=== PATIENT | male | born 1935 | race Caucasian/White ===

== ENCOUNTER 2017-05-05 13:17 | Inpatient (IN) ==
[2017-05-05] MEDS ORDERED: ALBUTEROL/IPRATROPIUM 3 ML NEB RESP TX STA (13:47)
[2017-05-05] MEDS ORDERED: cefTRIAXone 1,000 MG in SODIUM CHLORIDE 0.9% 100 ML IV STA (13:47)
[2017-05-05] MEDS ORDERED: SODIUM CHLORIDE 0.9% 500 ML IV STA ×2 (13:47→15:42)
[2017-05-05] MEDS ORDERED: ACETAMINOPHEN 650 MG SUPP RECTAL ONE (13:48)
[2017-05-05] MEDS ORDERED: methylPREDNISolone SOD SUC 125 MG/2 ML VIAL IV STA (13:50)
[2017-05-05] MEDS ORDERED: DIPH/TET/ACEL PERT BOOSTER VACCINE 0.5 ML VIAL IM ONE ×2 (13:51→14:08)
[2017-05-05 14:06] LABS: Basophils # 0.1 10*3/uL (0.0-0.2); Basophils % 0.5 % (0.0-0.8); Eosinophils % 0.1 % (0.00-10.9); Hematocrit 34.4 VOL% (42.0-52.0); Hemoglobin 11.8 GM/DL (14.0-18.0); Immature Granulocytes % 2.9 %; Lymphocytes % 5.7 % (21.2-54.2); Mean Corpuscular HGB Conc 34.3 GM/DL (32-36); Mean Corpuscular Hemoglobin 29 PG (27-34); Mean Corpuscular Volume 85.1 FL (87-102); Mean Platelet Volume 11.4 FL (9.6-12.0); Monocytes # 1.2 10*3/uL (0.11-0.8); Monocytes % 6.9 % (1.7-12.7); Neutrophils # 14.6 10*3/uL (1.4-7.4); Neutrophils % 83.9 % (38.7-73.9); Platelet Count 301 T/CUMM (130-400); Red Blood Count 4.04 MC/CUMM (3.8-5.5); Red Cell Distribution Width 16.4 % (9.3-17.3); White Blood Count 17.4 T/CUMM (4-12)
[2017-05-05] MEDS ORDERED: cefTRIAXone 1,000 MG VIAL ONE (14:07)
[2017-05-05] MEDS ORDERED: methylPREDNISolone SOD SUC 125 MG/2 ML VIAL ONE (14:08)
[2017-05-05] MEDS ORDERED: LORazepam 2 MG/1 ML VIAL ONE (14:08)
[2017-05-05 14:17] LABS: Apearance,Urine CLEAR (Clear); Bilirubin,Urine Negative (Negative); Blood, Urine Moderate mg/dL (Negative); Glucose,Urine (UA) Negative (Negative); Hyaline Casts,Urine 1 /LPF (0-3); Ketones,Urine Negative (Negative); Mucus,Urine Occasional /LPF (Occasional); Nitrite,Urine Negative (Negative); Protein,Urine Negative; RBC,Urine 2 /HPF (0-4); Urine Color Yellow (Yellow); Urine Specific Gravity 1.019 (1.001-1.035); Urine Urobilinogen < 2.0 EU/DL (0.2-1.0); WBC,Urine 8 /HPF (0-6)
[2017-05-05] MEDS ORDERED: LORazepam 2 MG/1 ML VIAL IV STA ×2 (14:23→15:42)
[2017-05-05 14:33] LABS: Albumin 3.9 G/DL (3.4-5.0); Bilirubin,Total 1.4 MG/DL (0.2-1.0); Calcium 9.1 MG/DL (8.5-10.1); Osmolality,Calculated 297.8 MOS/KG (273-304); Potassium 5.1 MMOL/L (3.5-5.1); Total Protein 6.6 G/DL (6.4-8.3)
[2017-05-05 14:34] LABS: Lactic Acid 6.1 MMOL/L (0.4-2.0)
[2017-05-05] MEDS ORDERED: DEXTROSE 50% 25 GM/50 ML VIAL IV STA (14:57)
[2017-05-05] MEDS ORDERED: SODIUM CHLORIDE 0.9% 1,950 ML IV ONE ×2 (14:58→15:08)
[2017-05-05] MEDS ORDERED: DEXTROSE 50% 25 GM/50 ML SYRINGE IV ONE (14:59)
[2017-05-05] MEDS ORDERED: SODIUM CHLORIDE 0.9% 1,000 ML IV SCH (15:00)
[2017-05-05 15:13] LABS: Sedimentation Rate-Westergren 46 MM/HR (0-20)
[2017-05-05 15:23] LABS: ABG Base Excess -6.9 MMOL/L (-2.5-2.5); ABG HCO3 18.7 MMOL/L (20-26); ABG Oxygen Saturation 93.9 % (95-100); ABG PCO2 29.8 MM HG (35-48); ABG PH 7.372 (7.35-7.45); ABG PO2 71.1 MM HG (80-95); ABG TCO2 15.7 MMOL/L (23-27)
[2017-05-05] MEDS ORDERED: DEXTROSE 50% 25 GM/50 ML VIAL IV PRN (15:58)
[2017-05-05] MEDS ORDERED: GLUCAGON 1 MG VIAL IM PRN (15:58)
[2017-05-05] MEDS ORDERED: ONDANSETRON 4 MG/2 ML VIAL IV PRN (15:58)
[2017-05-05] MEDS ORDERED: traMADol 50 MG TABLET PO PRN (16:26)
[2017-05-05 16:41] LABS: Partial Thromboplastin Time 26.8 SECS (0-40)
[2017-05-05] MEDS: PANTOPRAZOLE 40 MG VIAL IV SCH (16:49)
[2017-05-05] MEDS: ENOXAPARIN 30 MG/0.3 ML SYRINGE SUBCUT SCH (16:53)
[2017-05-05] MEDS: THEOPHYLLINE ER 300 MG TABLET PO SCH (16:54)
[2017-05-05] MEDS: methylPREDNISolone SOD SUC 40 MG/1 ML VIAL IV SCH ×2 (16:54→20:21)
[2017-05-05 17:10] LABS: Apearance,Urine Slightly Hazy (Clear); Bacteria,Urine Occasional /HPF (Few); Bilirubin,Urine Negative (Negative); Blood, Urine Large mg/dL (Negative); Glucose,Urine (UA) Negative (Negative); Ketones,Urine 5 mg/dL (Negative); Mucus,Urine Occasional /LPF (Occasional); Nitrite,Urine Negative (Negative); Protein,Urine 30 MG/DL; RBC,Urine 2 /HPF (0-4); Squamous Epithelial Cell,Urine Occasional /HPF (0-10); Urine Color Yellow (Yellow); Urine Specific Gravity 1.019 (1.001-1.035); Urine Urobilinogen < 2.0 EU/DL (0.2-1.0); WBC,Urine 5 /HPF (0-6)
[2017-05-05] MEDS: PIPERACILLIN/TAZOBACTAM 3,375 MG in SODIUM CHLORIDE 0.9% 100 ML IV SCH (17:31)
[2017-05-05] MEDS: ALBUTEROL/IPRATROPIUM 3 ML NEB RESP TX SCH (19:32)
[2017-05-05] MEDS: SODIUM BICARB INJ 50 MEQ in DEXTROSE 5% NACL 0.45% 1,000 ML IV SCH (19:45)
[2017-05-05] MEDS: GABAPENTIN 100 MG CAPSULE PO SCH (20:51)
[2017-05-05] MEDS ORDERED: PIPERACILLIN/TAZOBACTAM 3,375 MG in SODIUM CHLORIDE 0.9% 100 ML IV SCH (23:00)
[2017-05-06] MEDS: ALBUTEROL/IPRATROPIUM 3 ML NEB RESP TX SCH ×4 (00:29→20:21)
[2017-05-06] MEDS: PIPERACILLIN/TAZOBACTAM 3,375 MG in SODIUM CHLORIDE 0.9% 100 ML IV SCH ×3 (01:53→17:21)
[2017-05-06] MEDS: ALBUTEROL 2.5 MG/3 ML NEB RESP TX PRN (02:15)
[2017-05-06 04:40] LABS: Basophils # 0.1 10*3/uL (0.0-0.2); Basophils % 0.4 % (0.0-0.8); Hematocrit 31.2 VOL% (42.0-52.0); Hemoglobin 10.4 GM/DL (14.0-18.0); Immature Granulocytes % 2.1 %; Immature Granulocytes Absolute 0.39 #; Lymphocytes # 0.9 10*3/uL (1.4-4.0); Lymphocytes % 4.6 % (21.2-54.2); Mean Corpuscular HGB Conc 33.3 GM/DL (32-36); Mean Corpuscular Hemoglobin 28 PG (27-34); Mean Corpuscular Volume 85.2 FL (87-102); Mean Platelet Volume 11.5 FL (9.6-12.0); Monocytes # 0.5 10*3/uL (0.11-0.8); Monocytes % 2.6 % (1.7-12.7); Neutrophils # 16.6 10*3/uL (1.4-7.4); Neutrophils % 90.3 % (38.7-73.9); Platelet Count 230 T/CUMM (130-400); Red Blood Count 3.66 MC/CUMM (3.8-5.5); Red Cell Distribution Width 16.6 % (9.3-17.3); White Blood Count 18.3 T/CUMM (4-12)
[2017-05-06 05:08] LABS: Albumin 3.3 G/DL (3.4-5.0); Bilirubin,Total 1.3 MG/DL (0.2-1.0); Calcium 7.9 MG/DL (8.5-10.1); Osmolality,Calculated 310.3 MOS/KG (273-304); Total Protein 5.8 G/DL (6.4-8.3)
[2017-05-06 05:16] LABS: Band Neutrophils 2 % (0-10); Giant Platelets Few; Hypochromasia 1+; Lymphocytes 3 % (20-55); Ovalocytes Slight; Platelet Estimate Adequate; Segmented Neutrophils 94 % (50-85); Total Cells Counted 100
[2017-05-06] MEDS: SODIUM BICARB INJ 50 MEQ in DEXTROSE 5% NACL 0.45% 1,000 ML IV SCH ×3 (06:58→17:31)
[2017-05-06] MEDS: methylPREDNISolone SOD SUC 40 MG/1 ML VIAL IV SCH ×3 (07:05→22:02)
[2017-05-06] MEDS: LEVALBUTEROL 1.25 MG/3 ML NEB RESP TX PRN ×3 (07:40→19:14)
[2017-05-06] MEDS: GABAPENTIN 100 MG CAPSULE PO SCH ×3 (09:14→20:19)
[2017-05-06] MEDS: DULoxetine 30 MG CAPSULE PO SCH (09:14)
[2017-05-06] MEDS: TAMSULOSIN 0.4 MG CAPSULE PO SCH (09:15)
[2017-05-06] MEDS: FOLIC ACID 1 MG TABLET PO SCH (09:15)
[2017-05-06] MEDS: ACETAMINOPHEN 325 MG TABLET PO PRN (12:52)
[2017-05-06] MEDS ORDERED: cefTRIAXone 1,000 MG in SYRINGE 1 EACH IV SCH (13:00)
[2017-05-06] MEDS ORDERED: ADENOSINE 6 MG/2 ML VIAL IV ONE (14:19)
[2017-05-06] MEDS ORDERED: FUROSEMIDE 40 MG/4 ML VIAL IV ONE (16:41)
[2017-05-06] MEDS ORDERED: ACETAMINOPHEN 650 MG SUPP RECTAL PRN (16:52)
[2017-05-06] MEDS: PANTOPRAZOLE 40 MG VIAL IV SCH (17:18)
[2017-05-06] MEDS: ENOXAPARIN 30 MG/0.3 ML SYRINGE SUBCUT SCH (17:21)
[2017-05-06] MEDS: VANCOMYCIN INJ 1,000 MG in SODIUM CHLORIDE 0.9% 250 ML IV SCH (18:40)
[2017-05-07] MEDS: PIPERACILLIN/TAZOBACTAM 3,375 MG in SODIUM CHLORIDE 0.9% 100 ML IV SCH ×3 (00:51→17:30)
[2017-05-07] MEDS: LEVALBUTEROL 1.25 MG/3 ML NEB RESP TX PRN (00:58)
[2017-05-07] MEDS: ALBUTEROL/IPRATROPIUM 3 ML NEB RESP TX SCH ×5 (00:58→23:59)
[2017-05-07] MEDS: SODIUM BICARB INJ 50 MEQ in DEXTROSE 5% NACL 0.45% 1,000 ML IV SCH ×3 (02:34→19:09)
[2017-05-07 04:59] LABS: Basophils % 0.2 % (0.0-0.8); Hemoglobin 9.7 GM/DL (14.0-18.0); Immature Granulocytes % 2.6 %; Immature Granulocytes Absolute 0.43 #; Lymphocytes # 0.6 10*3/uL (1.4-4.0); Lymphocytes % 3.8 % (21.2-54.2); Mean Corpuscular HGB Conc 33.4 GM/DL (32-36); Mean Corpuscular Hemoglobin 28 PG (27-34); Mean Corpuscular Volume 84.5 FL (87-102); Mean Platelet Volume 11.4 FL (9.6-12.0); Monocytes # 0.4 10*3/uL (0.11-0.8); Monocytes % 2.3 % (1.7-12.7); Neutrophils % 91.1 % (38.7-73.9); Platelet Count 223 T/CUMM (130-400); Red Blood Count 3.43 MC/CUMM (3.8-5.5); White Blood Count 16.5 T/CUMM (4-12)
[2017-05-07 05:28] LABS: Free T4 (Free Thyroxine) 1.05 NG/DL (0.76-1.46); Risk Ratio 2.4; VLDL CHOLESTEROL 19.2 MG/DL
[2017-05-07 05:29] LABS: Albumin 2.8 G/DL (3.4-5.0); Bilirubin,Total 1.1 MG/DL (0.2-1.0); Calcium 7.8 MG/DL (8.5-10.1); Osmolality,Calculated 317.9 MOS/KG (273-304); Potassium 3.3 MMOL/L (3.5-5.1); Total Protein 5.3 G/DL (6.4-8.3)
[2017-05-07 05:45] LABS: Lymphocytes 3 % (20-55); Segmented Neutrophils 97 % (50-85); Total Cells Counted 100
[2017-05-07 05:46] LABS: Anisocytosis 1+; Hypochromasia 1+; Ovalocytes Few; Platelet Estimate Normal
[2017-05-07] MEDS: methylPREDNISolone SOD SUC 40 MG/1 ML VIAL IV SCH ×3 (05:56→21:00)
[2017-05-07] MEDS: TAMSULOSIN 0.4 MG CAPSULE PO SCH ×2 (08:33→08:54)
[2017-05-07] MEDS: DULoxetine 30 MG CAPSULE PO SCH ×2 (08:33→08:54)
[2017-05-07] MEDS: FOLIC ACID 1 MG TABLET PO SCH ×2 (08:35→08:54)
[2017-05-07] MEDS: GABAPENTIN 100 MG CAPSULE PO SCH ×4 (08:35→20:46)
[2017-05-07] MEDS ORDERED: INFLUENZA VIRUS VACCINE 0.5 ML SYRINGE IM ONE (09:00)
[2017-05-07] MEDS: POTASSIUM CHLORIDE 20 MEQ TABLET PO SCH ×2 (15:04→17:30)
[2017-05-07] MEDS: PANTOPRAZOLE 40 MG VIAL IV SCH (17:31)
[2017-05-07] MEDS: ENOXAPARIN 30 MG/0.3 ML SYRINGE SUBCUT SCH (17:31)
[2017-05-07] MEDS: ALBUTEROL 2.5 MG/3 ML NEB RESP TX PRN (17:42)
[2017-05-08] MEDS: PIPERACILLIN/TAZOBACTAM 3,375 MG in SODIUM CHLORIDE 0.9% 100 ML IV SCH ×3 (00:58→21:26)
[2017-05-08] MEDS: SODIUM BICARB INJ 50 MEQ in DEXTROSE 5% NACL 0.45% 1,000 ML IV SCH (03:11)
[2017-05-08 03:53] LABS: Basophils % 0.2 % (0.0-0.8); Hematocrit 28.3 VOL% (42.0-52.0); Hemoglobin 9.6 GM/DL (14.0-18.0); Immature Granulocytes % 4.2 %; Immature Granulocytes Absolute 0.56 #; Lymphocytes # 0.5 10*3/uL (1.4-4.0); Lymphocytes % 3.9 % (21.2-54.2); Mean Corpuscular HGB Conc 33.9 GM/DL (32-36); Mean Corpuscular Hemoglobin 29 PG (27-34); Mean Corpuscular Volume 85.2 FL (87-102); Mean Platelet Volume 11.1 FL (9.6-12.0); Monocytes # 0.6 10*3/uL (0.11-0.8); Monocytes % 4.5 % (1.7-12.7); Neutrophils # 11.5 10*3/uL (1.4-7.4); Neutrophils % 87.2 % (38.7-73.9); Platelet Count 211 T/CUMM (130-400); Red Blood Count 3.32 MC/CUMM (3.8-5.5); White Blood Count 13.2 T/CUMM (4-12)
[2017-05-08 04:20] LABS: Calcium 7.8 MG/DL (8.5-10.1); Magnesium 2.1 MG/DL (1.8-2.4); Osmolality,Calculated 327.2 MOS/KG (273-304); Potassium 4.1 MMOL/L (3.5-5.1)
[2017-05-08 04:57] LABS: Band Neutrophils 1 % (0-10); Lymphocytes 4 % (20-55); Platelet Estimate Normal; Segmented Neutrophils 93 % (50-85); Total Cells Counted 100
[2017-05-08] MEDS: methylPREDNISolone SOD SUC 40 MG/1 ML VIAL IV SCH ×3 (05:49→21:30)
[2017-05-08] MEDS: ALBUTEROL/IPRATROPIUM 3 ML NEB RESP TX SCH ×3 (07:23→19:41)
[2017-05-08] MEDS: DEXTROSE 5% 1,000 ML IV SCH ×2 (09:14→19:45)
[2017-05-08] MEDS: DULoxetine 30 MG CAPSULE PO SCH (09:15)
[2017-05-08] MEDS: FOLIC ACID 1 MG TABLET PO SCH (09:15)
[2017-05-08] MEDS: TAMSULOSIN 0.4 MG CAPSULE PO SCH (09:15)
[2017-05-08] MEDS: GABAPENTIN 100 MG CAPSULE PO SCH (09:15)
[2017-05-08] MEDS: INSULIN REGULAR 100 UNIT/ML SUBCUT SCH ×3 (11:35→22:33)
[2017-05-08] MEDS: THEOPHYLLINE ER 300 MG TABLET PO SCH ×2 (12:33→17:22)
[2017-05-08] MEDS ORDERED: ALBUTEROL/IPRATROPIUM 3 ML NEB RESP TX PRN (16:04)
[2017-05-08] MEDS ORDERED: ALBUTEROL 2.5 MG/3 ML NEB RESP TX SCH (16:04)
[2017-05-08] MEDS: PANTOPRAZOLE 40 MG VIAL IV SCH (17:14)
[2017-05-08] MEDS: VANCOMYCIN INJ 1,000 MG in SODIUM CHLORIDE 0.9% 250 ML IV SCH (18:11)
[2017-05-08] MEDS: predniSONE 10 MG TABLET PO SCH (18:16)
[2017-05-08] MEDS: ENOXAPARIN 30 MG/0.3 ML SYRINGE SUBCUT SCH (18:16)
[2017-05-08] MEDS: ACETAMINOPHEN 325 MG TABLET PO PRN (23:54)
[2017-05-09] MEDS: ALBUTEROL/IPRATROPIUM 3 ML NEB RESP TX SCH ×4 (00:17→19:00)
[2017-05-09] MEDS: PIPERACILLIN/TAZOBACTAM 3,375 MG in SODIUM CHLORIDE 0.9% 100 ML IV SCH ×2 (01:42→09:23)
[2017-05-09] MEDS: methylPREDNISolone SOD SUC 40 MG/1 ML VIAL IV SCH ×2 (05:32→17:24)
[2017-05-09] MEDS: INSULIN REGULAR 100 UNIT/ML SUBCUT SCH ×3 (08:33→17:20)
[2017-05-09] MEDS: DEXTROSE 5% 1,000 ML IV SCH (09:15)
[2017-05-09] MEDS: THEOPHYLLINE ER 300 MG TABLET PO SCH ×2 (09:16→17:47)
[2017-05-09] MEDS: DULoxetine 30 MG CAPSULE PO SCH (09:18)
[2017-05-09] MEDS: TAMSULOSIN 0.4 MG CAPSULE PO SCH (09:19)
[2017-05-09] MEDS: predniSONE 10 MG TABLET PO SCH (09:20)
[2017-05-09] MEDS: FOLIC ACID 1 MG TABLET PO SCH (09:20)
[2017-05-09] MEDS: PANTOPRAZOLE 40 MG VIAL IV SCH (09:29)
[2017-05-10] MEDS: ALBUTEROL/IPRATROPIUM 3 ML NEB RESP TX SCH ×3 (00:07→13:32)
[2017-05-10] MEDS: DEXTROSE 5% 1,000 ML IV SCH ×2 (00:52→10:04)
[2017-05-10] MEDS: AMOXICILLIN/CLAV 875 MG TABLET PO SCH ×2 (00:54→10:07)
[2017-05-10] MEDS: methylPREDNISolone SOD SUC 40 MG/1 ML VIAL IV SCH ×3 (00:55→14:38)
[2017-05-10] MEDS: ENOXAPARIN 30 MG/0.3 ML SYRINGE SUBCUT SCH (00:56)
[2017-05-10] MEDS: INSULIN REGULAR 100 UNIT/ML SUBCUT SCH ×3 (02:29→12:09)
[2017-05-10 05:42] LABS: Basophils # 0.1 10*3/uL (0.0-0.2); Basophils % 0.6 % (0.0-0.8); Hematocrit 30.7 VOL% (42.0-52.0); Hemoglobin 10.4 GM/DL (14.0-18.0); Immature Granulocytes % 6.4 %; Immature Granulocytes Absolute 0.77 #; Lymphocytes # 1.3 10*3/uL (1.4-4.0); Lymphocytes % 10.5 % (21.2-54.2); Mean Corpuscular HGB Conc 33.9 GM/DL (32-36); Mean Corpuscular Hemoglobin 29 PG (27-34); Mean Corpuscular Volume 84.8 FL (87-102); Monocytes # 0.9 10*3/uL (0.11-0.8); Monocytes % 7.1 % (1.7-12.7); NRBC # 0.02 10*3/uL; Neutrophils # 9.1 10*3/uL (1.4-7.4); Neutrophils % 75.4 % (38.7-73.9); Platelet Count 208 T/CUMM (130-400); Red Blood Count 3.62 MC/CUMM (3.8-5.5); Red Cell Distribution Width 15.9 % (9.3-17.3)
[2017-05-10 06:23] LABS: Calcium 7.9 MG/DL (8.5-10.1); Osmolality,Calculated 291.1 MOS/KG (273-304); Potassium 3.8 MMOL/L (3.5-5.1)
[2017-05-10 06:43] LABS: Band Neutrophils 3 % (0-10); Lymphocytes 14 % (20-55); Nucleated Red Blood Cells 15 (0-5); Segmented Neutrophils 75 % (50-85); Total Cells Counted 100
[2017-05-10 06:44] LABS: Burr Cells Slight; Platelet Estimate Adequate
[2017-05-10] MEDS: PANTOPRAZOLE 40 MG VIAL IV SCH (10:06)
[2017-05-10] MEDS: THEOPHYLLINE ER 300 MG TABLET PO SCH (10:06)
[2017-05-10] MEDS: FOLIC ACID 1 MG TABLET PO SCH (10:07)
[2017-05-10] MEDS: TAMSULOSIN 0.4 MG CAPSULE PO SCH (10:07)
[2017-05-10] MEDS: DULoxetine 30 MG CAPSULE PO SCH (10:07)
[2017-05-10 12:31] VITALS: BP 140/77
[2017-05-10] MEDS ORDERED: ENOXAPARIN 40 MG/0.4 ML SYRINGE SUBCUT SCH (21:00)
== END 2017-05-10 14:00 | disposition swing bed (61) | DRG 871 ==
LOC: N.ED 13:17 → SUATTDRO 15:27 → N.EDINP 15:27 → N.CC 16:15 → N.2E 05-08 16:07
PROVIDERS: ADMIT Internal Medicine; ATTEND Hospitalist

== ENCOUNTER 2017-08-22 09:40 | Inpatient (IN) ==
[2017-08-22] MEDS ORDERED: methylPREDNISolone SOD SUC 125 MG/2 ML VIAL IV STA (10:05)
[2017-08-22] MEDS ORDERED: cefTRIAXone 1,000 MG in SODIUM CHLORIDE 0.9% 100 ML IV STA (10:07)
[2017-08-22] MEDS ORDERED: ALBUTEROL 2.5 MG/3 ML NEB RESP TX STA (10:14)
[2017-08-22] MEDS ORDERED: cefTRIAXone 1,000 MG VIAL ONE (10:20)
[2017-08-22] MEDS ORDERED: methylPREDNISolone SOD SUC 125 MG/2 ML VIAL ONE (10:21)
[2017-08-22 10:29] LABS: ABG Base Excess -1.7 MMOL/L (-2.5-2.5); ABG HCO3 23.4 MMOL/L (20-26); ABG Oxygen Saturation 95.8 % (95-100); ABG PCO2 40.7 MM HG (35-48); ABG PH 7.377 (7.35-7.45); ABG PO2 84.4 MM HG (80-95); ABG TCO2 24.6 MMOL/L (23-27)
[2017-08-22 10:43] LABS: Basophils # 0.1 10*3/uL (0.0-0.2); Basophils % 0.4 % (0.0-0.8); Hematocrit 29.1 VOL% (42.0-52.0); Hemoglobin 9.5 GM/DL (14.0-18.0); Immature Granulocytes % 0.8 %; Immature Granulocytes Absolute 0.17 #; Lymphocytes # 0.6 10*3/uL (1.4-4.0); Lymphocytes % 2.9 % (21.2-54.2); Mean Corpuscular HGB Conc 32.6 GM/DL (32-36); Mean Corpuscular Hemoglobin 30 PG (27-34); Mean Corpuscular Volume 90.7 FL (87-102); Mean Platelet Volume 10.5 FL (9.6-12.0); Monocytes # 1.1 10*3/uL (0.11-0.8); Monocytes % 5.4 % (1.7-12.7); Neutrophils # 18.4 10*3/uL (1.4-7.4); Neutrophils % 90.5 % (38.7-73.9); Platelet Count 256 T/CUMM (130-400); Red Blood Count 3.21 MC/CUMM (3.8-5.5); Red Cell Distribution Width 17.3 % (9.3-17.3); White Blood Count 20.4 T/CUMM (4-12)
[2017-08-22 10:52] LABS: Lactic Acid 2.2 MMOL/L (0.4-2.0)
[2017-08-22 11:04] LABS: Alanine Aminotransferase 9 U/L (16-61); Albumin 2.9 G/DL (3.4-5.0); Alkaline Phosphatase 67 U/L (45-117); Aspartate Amino Transferase 23 U/L (0-37); Blood Urea Nitrogen 33 MG/DL (7-18); Glucose 121 MG/DL (74-106); Osmolality,Calculated 290.1 MOS/KG (273-304); Potassium 3.7 MMOL/L (3.5-5.1); Sodium 142 MMOL/L (136-145); Total Protein 5.6 G/DL (6.4-8.3); Troponin I Only < 0.015 NG/ML (0.00-0.045)
[2017-08-22 11:22] LABS: Band Neutrophils 6 % (0-10); Giant Platelets Few; Hypochromasia 1+; Lymphocytes 1 % (20-55); Nucleated Red Blood Cells 1 (0-5); Ovalocytes Slight; Platelet Estimate Adequate; Segmented Neutrophils 85 % (50-85); Total Cells Counted 100
[2017-08-22] MEDS ORDERED: ONDANSETRON 4 MG/2 ML VIAL IV PRN (13:48)
[2017-08-22] MEDS ORDERED: ALBUTEROL/IPRATROPIUM 3 ML NEB RESP TX PRN (13:48)
[2017-08-22] MEDS ORDERED: ALBUTEROL/IPRATROPIUM 3 ML NEB RESP TX SCH (13:48)
[2017-08-22] MEDS ORDERED: DILTIAZEM 50 MG/10 ML VIAL IV ONE (14:22)
[2017-08-22] MEDS ORDERED: methylPREDNISolone SOD SUC 40 MG/1 ML VIAL IV SCH (14:30)
[2017-08-22] MEDS: cefTRIAXone 1,000 MG in SYRINGE 1 EACH IV SCH (14:50)
[2017-08-22] MEDS: DILTIAZEM INJ 100 MG in SODIUM CHLORIDE 0.9% 100 ML IV SCH ×2 (15:13→23:26)
[2017-08-22] MEDS: SODIUM CHLORIDE 0.9% 1,000 ML IV SCH (15:14)
[2017-08-22] MEDS: ENOXAPARIN 40 MG/0.4 ML SYRINGE SUBCUT SCH (15:14)
[2017-08-22] MEDS: GABAPENTIN 100 MG CAPSULE PO SCH ×3 (15:16→21:27)
[2017-08-22 15:25] LABS: Calcium 8.6 MG/DL (8.5-10.1); Potassium 3.4 MMOL/L (3.5-5.1)
[2017-08-22] MEDS ORDERED: LEVALBUTEROL 1.25 MG/3 ML NEB RESP TX PRN (15:56)
[2017-08-22] MEDS: THEOPHYLLINE ER 300 MG TABLET PO SCH (17:38)
[2017-08-22] MEDS: AZITHROMYCIN INJ 500 MG in SODIUM CHLORIDE 0.9% 250 ML IV SCH (17:38)
[2017-08-22 18:10] LABS: Apearance,Urine CLEAR (Clear); Bilirubin,Urine Negative (Negative); Blood, Urine Small mg/dL (Negative); Glucose,Urine (UA) Negative (Negative); Ketones,Urine Negative (Negative); Mucus,Urine Occasional /LPF (Occasional); Nitrite,Urine Negative (Negative); Protein,Urine Negative; RBC,Urine <1 /HPF (0-4); Urine Color Yellow (Yellow); Urine Specific Gravity 1.009 (1.001-1.035); Urine Urobilinogen < 2.0 EU/DL (0.2-1.0)
[2017-08-22] MEDS: LEVALBUTEROL 1.25 MG/3 ML NEB RESP TX SCH (19:46)
[2017-08-22] MEDS: DOCUSATE SODIUM 100 MG CAPSULE PO SCH (21:26)
[2017-08-22] MEDS: METOPROLOL TARTRATE 25 MG TABLET PO SCH (21:26)
[2017-08-22] MEDS: DILTIAZEM 60 MG TABLET PO SCH (21:26)
[2017-08-22] MEDS: rOPINIRole 0.25 MG TABLET PO SCH (21:26)
[2017-08-22] MEDS: RIVASTIGMINE 1.5 MG CAPSULE PO SCH (21:27)
[2017-08-22] MEDS ORDERED: cefTRIAXone 1,000 MG in SYRINGE 1 EACH IV SCH (22:00)
[2017-08-22] MEDS: methylPREDNISolone SOD SUC 40 MG/1 ML VIAL IV SCH (23:24)
[2017-08-23] MEDS: LEVALBUTEROL 1.25 MG/3 ML NEB RESP TX SCH ×4 (01:22→18:55)
[2017-08-23 02:12] LABS: Basophils # 0.1 10*3/uL (0.0-0.2); Basophils % 0.3 % (0.0-0.8); Hematocrit 28.8 VOL% (42.0-52.0); Hemoglobin 9.5 GM/DL (14.0-18.0); Immature Granulocytes % 1.6 %; Immature Granulocytes Absolute 0.33 #; Lymphocytes # 0.8 10*3/uL (1.4-4.0); Mean Corpuscular Hemoglobin 30 PG (27-34); Mean Corpuscular Volume 90.6 FL (87-102); Mean Platelet Volume 10.5 FL (9.6-12.0); Monocytes # 0.5 10*3/uL (0.11-0.8); Monocytes % 2.4 % (1.7-12.7); Neutrophils # 18.6 10*3/uL (1.4-7.4); Neutrophils % 91.7 % (38.7-73.9); Platelet Count 271 T/CUMM (130-400); Red Blood Count 3.18 MC/CUMM (3.8-5.5); Red Cell Distribution Width 17.5 % (9.3-17.3); White Blood Count 20.2 T/CUMM (4-12)
[2017-08-23 02:43] LABS: Calcium 8.3 MG/DL (8.5-10.1); Potassium 3.7 MMOL/L (3.5-5.1)
[2017-08-23 02:56] LABS: Band Neutrophils 30 % (0-10); Lymphocytes 6 % (20-55); Segmented Neutrophils 63 % (50-85); Total Cells Counted 100
[2017-08-23] MEDS: SODIUM CHLORIDE 0.9% 1,000 ML IV SCH ×3 (04:00→21:32)
[2017-08-23 04:39] LABS: Allen Test Positive
[2017-08-23 04:40] LABS: ABG Base Excess -1.4 MMOL/L (-2.5-2.5); ABG HCO3 23.3 MMOL/L (20-26); ABG Oxygen Saturation 95.5 % (95-100); ABG PCO2 38.9 MM HG (35-48); ABG PH 7.395 (7.35-7.45); ABG PO2 79.3 MM HG (80-95); ABG TCO2 24.5 MMOL/L (23-27)
[2017-08-23] MEDS: methylPREDNISolone SOD SUC 40 MG/1 ML VIAL IV SCH ×2 (06:07→14:30)
[2017-08-23] MEDS: DULoxetine 30 MG CAPSULE PO SCH (08:53)
[2017-08-23] MEDS: DOCUSATE SODIUM 100 MG CAPSULE PO SCH ×2 (08:53→21:25)
[2017-08-23] MEDS: PANTOPRAZOLE 40 MG TABLET PO SCH (08:53)
[2017-08-23] MEDS: TAMSULOSIN 0.4 MG CAPSULE PO SCH (08:53)
[2017-08-23] MEDS: THEOPHYLLINE ER 300 MG TABLET PO SCH ×2 (08:53→17:10)
[2017-08-23] MEDS: METOPROLOL TARTRATE 25 MG TABLET PO SCH ×2 (08:53→21:25)
[2017-08-23] MEDS: DILTIAZEM 60 MG TABLET PO SCH ×4 (08:53→21:25)
[2017-08-23] MEDS: FOLIC ACID 1 MG TABLET PO SCH (08:53)
[2017-08-23] MEDS: RIVASTIGMINE 1.5 MG CAPSULE PO SCH ×2 (08:53→21:25)
[2017-08-23] MEDS: GABAPENTIN 100 MG CAPSULE PO SCH ×3 (08:53→21:25)
[2017-08-23 11:53] LABS: Lactic Acid 2.3 MMOL/L (0.4-2.0)
[2017-08-23] MEDS: ENOXAPARIN 40 MG/0.4 ML SYRINGE SUBCUT SCH (14:30)
[2017-08-23] MEDS: cefTRIAXone 1,000 MG in SYRINGE 1 EACH IV SCH (14:32)
[2017-08-23] MEDS: AZITHROMYCIN INJ 500 MG in SODIUM CHLORIDE 0.9% 250 ML IV SCH (14:47)
[2017-08-23] MEDS: rOPINIRole 0.25 MG TABLET PO SCH (21:25)
[2017-08-24] MEDS: methylPREDNISolone SOD SUC 40 MG/1 ML VIAL IV SCH ×3 (00:38→14:37)
[2017-08-24] MEDS: LEVALBUTEROL 1.25 MG/3 ML NEB RESP TX SCH ×2 (01:35→06:50)
[2017-08-24 06:02] LABS: Basophils # 0.1 10*3/uL (0.0-0.2); Basophils % 0.5 % (0.0-0.8); Hemoglobin 8.9 GM/DL (14.0-18.0); Immature Granulocytes % 3.7 %; Immature Granulocytes Absolute 0.65 #; Lymphocytes # 0.6 10*3/uL (1.4-4.0); Lymphocytes % 3.5 % (21.2-54.2); Mean Corpuscular HGB Conc 34.2 GM/DL (32-36); Mean Corpuscular Hemoglobin 30 PG (27-34); Mean Corpuscular Volume 88.4 FL (87-102); Mean Platelet Volume 11.3 FL (9.6-12.0); Monocytes # 0.3 10*3/uL (0.11-0.8); Monocytes % 1.9 % (1.7-12.7); NRBC # 0.03 10*3/uL; Neutrophils % 90.4 % (38.7-73.9); Platelet Count 241 T/CUMM (130-400); Red Blood Count 2.94 MC/CUMM (3.8-5.5); Red Cell Distribution Width 17.4 % (9.3-17.3); White Blood Count 17.7 T/CUMM (4-12)
[2017-08-24 06:22] LABS: Lymphocytes 4 % (20-55); Segmented Neutrophils 94 % (50-85); Total Cells Counted 100
[2017-08-24] MEDS: SODIUM CHLORIDE 0.9% 1,000 ML IV SCH ×2 (06:26→22:18)
[2017-08-24 06:35] LABS: Albumin 2.8 G/DL (3.4-5.0); Bilirubin,Total 0.6 MG/DL (0.2-1.0); Calcium 8.1 MG/DL (8.5-10.1); Osmolality,Calculated 304.1 MOS/KG (273-304); Potassium 3.2 MMOL/L (3.5-5.1); Total Protein 5.1 G/DL (6.4-8.3)
[2017-08-24] MEDS: THEOPHYLLINE ER 300 MG TABLET PO SCH ×2 (08:36→17:16)
[2017-08-24] MEDS: RIVASTIGMINE 1.5 MG CAPSULE PO SCH ×2 (08:36→22:18)
[2017-08-24] MEDS: DOCUSATE SODIUM 100 MG CAPSULE PO SCH ×2 (08:37→22:17)
[2017-08-24] MEDS: PANTOPRAZOLE 40 MG TABLET PO SCH (08:37)
[2017-08-24] MEDS: DILTIAZEM 60 MG TABLET PO SCH ×4 (08:37→22:17)
[2017-08-24] MEDS: TAMSULOSIN 0.4 MG CAPSULE PO SCH (08:37)
[2017-08-24] MEDS: GABAPENTIN 100 MG CAPSULE PO SCH ×3 (08:37→22:17)
[2017-08-24] MEDS: DULoxetine 30 MG CAPSULE PO SCH (08:37)
[2017-08-24] MEDS: METOPROLOL TARTRATE 25 MG TABLET PO SCH ×2 (08:37→22:18)
[2017-08-24] MEDS: FOLIC ACID 1 MG TABLET PO SCH (08:37)
[2017-08-24] MEDS: POTASSIUM CHLORIDE RIDER 10 MEQ in PREMIX 1 EACH IV PRN ×4 (08:40→12:55)
[2017-08-24] MEDS: ALBUTEROL/IPRATROPIUM 3 ML NEB RESP TX SCH ×2 (12:47→19:14)
[2017-08-24] MEDS: CARBIDOPA/LEVODOPA 25-100 MG TABLET PO SCH ×2 (14:37→22:18)
[2017-08-24] MEDS: ENOXAPARIN 40 MG/0.4 ML SYRINGE SUBCUT SCH (14:37)
[2017-08-24] MEDS: cefTRIAXone 1,000 MG in SYRINGE 1 EACH IV SCH (14:38)
[2017-08-24] MEDS: AZITHROMYCIN INJ 500 MG in SODIUM CHLORIDE 0.9% 250 ML IV SCH (14:46)
[2017-08-24] MEDS: rOPINIRole 0.25 MG TABLET PO SCH (22:18)
[2017-08-25] MEDS: ALBUTEROL/IPRATROPIUM 3 ML NEB RESP TX SCH ×4 (00:30→18:56)
[2017-08-25] MEDS: methylPREDNISolone SOD SUC 40 MG/1 ML VIAL IV SCH (01:21)
[2017-08-25] MEDS ORDERED: ZIPRASIDONE 20 MG/1 ML VIAL IM ONE (01:30)
[2017-08-25] MEDS: FOLIC ACID 1 MG TABLET PO SCH (08:54)
[2017-08-25] MEDS: RIVASTIGMINE 1.5 MG CAPSULE PO SCH ×2 (08:54→21:14)
[2017-08-25] MEDS: DILTIAZEM 60 MG TABLET PO SCH ×4 (08:54→21:14)
[2017-08-25] MEDS: DOCUSATE SODIUM 100 MG CAPSULE PO SCH ×2 (08:55→21:14)
[2017-08-25] MEDS: METOPROLOL TARTRATE 25 MG TABLET PO SCH ×2 (08:55→21:14)
[2017-08-25] MEDS: SODIUM CHLORIDE 0.9% 1,000 ML IV SCH (08:55)
[2017-08-25] MEDS: CARBIDOPA/LEVODOPA 25-100 MG TABLET PO SCH ×3 (08:55→21:14)
[2017-08-25] MEDS: PANTOPRAZOLE 40 MG TABLET PO SCH (08:55)
[2017-08-25] MEDS: THEOPHYLLINE ER 300 MG TABLET PO SCH ×2 (08:55→17:08)
[2017-08-25] MEDS: GABAPENTIN 100 MG CAPSULE PO SCH ×3 (08:55→21:14)
[2017-08-25] MEDS: TAMSULOSIN 0.4 MG CAPSULE PO SCH (08:55)
[2017-08-25] MEDS: DULoxetine 30 MG CAPSULE PO SCH (08:56)
[2017-08-25] MEDS: predniSONE 20 MG TABLET PO SCH (10:16)
[2017-08-25] MEDS ORDERED: ZIPRASIDONE 20 MG CAPSULE PO PRN ×2 (11:41→11:43)
[2017-08-25] MEDS: cefTRIAXone 1,000 MG in SYRINGE 1 EACH IV SCH (14:28)
[2017-08-25] MEDS: ENOXAPARIN 40 MG/0.4 ML SYRINGE SUBCUT SCH (14:29)
[2017-08-25] MEDS: ZIPRASIDONE 20 MG CAPSULE PO PRN (17:08)
[2017-08-25] MEDS: rOPINIRole 0.25 MG TABLET PO SCH (21:14)
[2017-08-26] MEDS: ALBUTEROL/IPRATROPIUM 3 ML NEB RESP TX SCH ×4 (00:30→20:54)
[2017-08-26] MEDS: predniSONE 20 MG TABLET PO SCH (09:04)
[2017-08-26] MEDS: GABAPENTIN 100 MG CAPSULE PO SCH ×3 (09:06→21:22)
[2017-08-26] MEDS: TAMSULOSIN 0.4 MG CAPSULE PO SCH (09:06)
[2017-08-26] MEDS: THEOPHYLLINE ER 300 MG TABLET PO SCH ×2 (09:06→16:14)
[2017-08-26] MEDS: METOPROLOL TARTRATE 25 MG TABLET PO SCH ×2 (09:06→21:23)
[2017-08-26] MEDS: FOLIC ACID 1 MG TABLET PO SCH (09:06)
[2017-08-26] MEDS: DOCUSATE SODIUM 100 MG CAPSULE PO SCH ×2 (09:06→21:22)
[2017-08-26] MEDS: PANTOPRAZOLE 40 MG TABLET PO SCH (09:06)
[2017-08-26] MEDS: DULoxetine 30 MG CAPSULE PO SCH (09:06)
[2017-08-26] MEDS: DILTIAZEM 60 MG TABLET PO SCH ×4 (09:06→21:22)
[2017-08-26] MEDS: RIVASTIGMINE 1.5 MG CAPSULE PO SCH ×2 (09:06→21:22)
[2017-08-26] MEDS: CARBIDOPA/LEVODOPA 25-100 MG TABLET PO SCH ×3 (09:07→21:22)
[2017-08-26] MEDS: ENOXAPARIN 40 MG/0.4 ML SYRINGE SUBCUT SCH (13:30)
[2017-08-26] MEDS: cefTRIAXone 1,000 MG in SYRINGE 1 EACH IV SCH (16:14)
[2017-08-26] MEDS: rOPINIRole 0.25 MG TABLET PO SCH (21:23)
[2017-08-26] MEDS: CEFUROXIME 250 MG TABLET PO SCH (21:23)
[2017-08-26] MEDS: ZIPRASIDONE 20 MG CAPSULE PO PRN (22:01)
[2017-08-27] MEDS: ALBUTEROL/IPRATROPIUM 3 ML NEB RESP TX SCH ×4 (00:37→21:03)
[2017-08-27 03:44] LABS: Basophils # 0.1 10*3/uL (0.0-0.2); Basophils % 0.9 % (0.0-0.8); Eosinophils % 0.3 % (0.00-10.9); Hematocrit 27.7 VOL% (42.0-52.0); Hemoglobin 9.4 GM/DL (14.0-18.0); Immature Granulocytes % 10.7 %; Immature Granulocytes Absolute 1.09 #; Lymphocytes # 1.3 10*3/uL (1.4-4.0); Lymphocytes % 12.6 % (21.2-54.2); Mean Corpuscular HGB Conc 33.9 GM/DL (32-36); Mean Corpuscular Hemoglobin 30 PG (27-34); Mean Corpuscular Volume 88.2 FL (87-102); Mean Platelet Volume 10.8 FL (9.6-12.0); Monocytes % 9.9 % (1.7-12.7); NRBC # 0.19 10*3/uL; Neutrophils # 6.7 10*3/uL (1.4-7.4); Neutrophils % 65.6 % (38.7-73.9); Platelet Count 293 T/CUMM (130-400); Red Blood Count 3.14 MC/CUMM (3.8-5.5); White Blood Count 10.2 T/CUMM (4-12)
[2017-08-27 04:24] LABS: Calcium 8.3 MG/DL (8.5-10.1); Osmolality,Calculated 301.8 MOS/KG (273-304)
[2017-08-27 05:48] LABS: Band Neutrophils 2 % (0-10); Hypersegmented Neutrophil Few; Lymphocytes 19 % (20-55); Myelocytes 3 %; Segmented Neutrophils 75 % (50-85); Total Cells Counted 100
[2017-08-27 05:50] LABS: Anisocytosis 1+; Atypical Lymphocytes Moderate
[2017-08-27 05:51] LABS: Acanthocytes Few; Platelet Estimate Normal
[2017-08-27] MEDS: RIVASTIGMINE 1.5 MG CAPSULE PO SCH ×2 (10:04→20:19)
[2017-08-27] MEDS: GABAPENTIN 100 MG CAPSULE PO SCH ×3 (10:04→20:19)
[2017-08-27] MEDS: CEFUROXIME 250 MG TABLET PO SCH ×2 (10:04→20:19)
[2017-08-27] MEDS: DULoxetine 30 MG CAPSULE PO SCH (10:05)
[2017-08-27] MEDS: TAMSULOSIN 0.4 MG CAPSULE PO SCH (10:05)
[2017-08-27] MEDS: THEOPHYLLINE ER 300 MG TABLET PO SCH ×2 (10:05→16:56)
[2017-08-27] MEDS: predniSONE 20 MG TABLET PO SCH (10:05)
[2017-08-27] MEDS: FOLIC ACID 1 MG TABLET PO SCH (10:05)
[2017-08-27] MEDS: METOPROLOL TARTRATE 25 MG TABLET PO SCH ×2 (10:06→20:19)
[2017-08-27] MEDS: DILTIAZEM 60 MG TABLET PO SCH ×4 (10:06→20:18)
[2017-08-27] MEDS: PANTOPRAZOLE 40 MG TABLET PO SCH (10:06)
[2017-08-27] MEDS: CARBIDOPA/LEVODOPA 25-100 MG TABLET PO SCH ×3 (10:06→20:19)
[2017-08-27] MEDS: DOCUSATE SODIUM 100 MG CAPSULE PO SCH ×2 (10:09→20:18)
[2017-08-27] MEDS: ENOXAPARIN 40 MG/0.4 ML SYRINGE SUBCUT SCH (14:30)
[2017-08-27] MEDS: rOPINIRole 0.25 MG TABLET PO SCH (20:19)
[2017-08-27] MEDS: ZIPRASIDONE 20 MG CAPSULE PO PRN (21:09)
[2017-08-28] MEDS: ALBUTEROL/IPRATROPIUM 3 ML NEB RESP TX SCH ×4 (00:26→19:31)
[2017-08-28 05:51] LABS: Calcium 7.8 MG/DL (8.5-10.1); Osmolality,Calculated 294.8 MOS/KG (273-304); Potassium 3.8 MMOL/L (3.5-5.1)
[2017-08-28] MEDS: THEOPHYLLINE ER 300 MG TABLET PO SCH ×2 (09:58→16:57)
[2017-08-28] MEDS: CEFUROXIME 250 MG TABLET PO SCH ×2 (09:58→21:45)
[2017-08-28] MEDS: CARBIDOPA/LEVODOPA 25-100 MG TABLET PO SCH ×3 (09:58→21:45)
[2017-08-28] MEDS: DULoxetine 30 MG CAPSULE PO SCH (09:58)
[2017-08-28] MEDS: METOPROLOL TARTRATE 25 MG TABLET PO SCH ×2 (09:59→21:45)
[2017-08-28] MEDS: DOCUSATE SODIUM 100 MG CAPSULE PO SCH ×2 (09:59→21:45)
[2017-08-28] MEDS: FOLIC ACID 1 MG TABLET PO SCH (09:59)
[2017-08-28] MEDS: PANTOPRAZOLE 40 MG TABLET PO SCH (09:59)
[2017-08-28] MEDS: predniSONE 20 MG TABLET PO SCH (09:59)
[2017-08-28] MEDS: GABAPENTIN 100 MG CAPSULE PO SCH ×3 (09:59→21:45)
[2017-08-28] MEDS: DILTIAZEM 60 MG TABLET PO SCH ×4 (09:59→21:45)
[2017-08-28] MEDS: RIVASTIGMINE 1.5 MG CAPSULE PO SCH ×2 (09:59→21:45)
[2017-08-28] MEDS: TAMSULOSIN 0.4 MG CAPSULE PO SCH (09:59)
[2017-08-28] MEDS: ENOXAPARIN 40 MG/0.4 ML SYRINGE SUBCUT SCH (14:48)
[2017-08-28] MEDS: ZIPRASIDONE 20 MG CAPSULE PO PRN (21:45)
[2017-08-28] MEDS: rOPINIRole 0.25 MG TABLET PO SCH (21:45)
[2017-08-29] MEDS: ALBUTEROL/IPRATROPIUM 3 ML NEB RESP TX SCH ×3 (02:47→13:50)
[2017-08-29] MEDS ORDERED: METHOTREXATE 2.5 MG TABLET PO SCH (09:00)
[2017-08-29] MEDS: FOLIC ACID 1 MG TABLET PO SCH (09:38)
[2017-08-29] MEDS: THEOPHYLLINE ER 300 MG TABLET PO SCH (09:38)
[2017-08-29] MEDS: CARBIDOPA/LEVODOPA 25-100 MG TABLET PO SCH ×2 (09:38→15:29)
[2017-08-29] MEDS: DOCUSATE SODIUM 100 MG CAPSULE PO SCH (09:38)
[2017-08-29] MEDS: TAMSULOSIN 0.4 MG CAPSULE PO SCH (09:38)
[2017-08-29] MEDS: DILTIAZEM 60 MG TABLET PO SCH ×2 (09:38→13:33)
[2017-08-29] MEDS: CEFUROXIME 250 MG TABLET PO SCH (09:38)
[2017-08-29] MEDS: PANTOPRAZOLE 40 MG TABLET PO SCH (09:38)
[2017-08-29] MEDS: predniSONE 20 MG TABLET PO SCH (09:38)
[2017-08-29] MEDS: METOPROLOL TARTRATE 25 MG TABLET PO SCH (09:39)
[2017-08-29] MEDS: GABAPENTIN 100 MG CAPSULE PO SCH ×2 (09:39→15:29)
[2017-08-29] MEDS: RIVASTIGMINE 1.5 MG CAPSULE PO SCH (09:39)
[2017-08-29] MEDS: DULoxetine 30 MG CAPSULE PO SCH (09:39)
[2017-08-29 11:26] VITALS: BP 119/79
[2017-08-29] MEDS: ENOXAPARIN 40 MG/0.4 ML SYRINGE SUBCUT SCH (13:33)
== END 2017-08-29 16:05 | DRG 291 ==
LOC: EDUNIT# → EDBD → N.ED 09:40 → SUATTDRO 11:35 → N.EDINP 11:35 → N.TELES 13:31 → N.5E 13:46 → N.TELES 14:23 → N.3E 08-26 16:38
PROVIDERS: ADMIT Internal Medicine; ATTEND Internal Medicine

== ENCOUNTER 2017-09-10 21:15 | Inpatient (IN) ==
[2017-09-10] MEDS ORDERED: ALBUTEROL/IPRATROPIUM 3 ML NEB RESP TX STA (22:02)
[2017-09-10] MEDS ORDERED: cefTRIAXone 1,000 MG in SODIUM CHLORIDE 0.9% 100 ML IV STA (22:05)
[2017-09-10] MEDS ORDERED: methylPREDNISolone SOD SUC 125 MG/2 ML VIAL IV STA (22:05)
[2017-09-10 22:13] LABS: Basophils # 0.1 10*3/uL (0.0-0.2); Basophils % 0.7 % (0.0-0.8); Eosinophils # 0.1 10*3/uL (0.0-0.87); Eosinophils % 0.9 % (0.00-10.9); Hematocrit 30.1 VOL% (42.0-52.0); Hemoglobin 9.6 GM/DL (14.0-18.0); Immature Granulocytes % 0.7 %; Immature Granulocytes Absolute 0.05 #; Lymphocytes # 2.3 10*3/uL (1.4-4.0); Lymphocytes % 29.8 % (21.2-54.2); Mean Corpuscular HGB Conc 31.9 GM/DL (32-36); Mean Corpuscular Hemoglobin 29 PG (27-34); Mean Corpuscular Volume 91.8 FL (87-102); Mean Platelet Volume 10.9 FL (9.6-12.0); Monocytes # 0.7 10*3/uL (0.11-0.8); Monocytes % 8.9 % (1.7-12.7); Neutrophils # 4.5 10*3/uL (1.4-7.4); Platelet Count 354 T/CUMM (130-400); Red Blood Count 3.28 MC/CUMM (3.8-5.5); Red Cell Distribution Width 18.5 % (9.3-17.3); White Blood Count 7.6 T/CUMM (4-12)
[2017-09-10] MEDS ORDERED: cefTRIAXone 1,000 MG VIAL ONE (22:15)
[2017-09-10] MEDS ORDERED: methylPREDNISolone SOD SUC 125 MG/2 ML VIAL ONE (22:15)
[2017-09-10 22:21] LABS: PT Patient Result 10.1 SECS; Partial Thromboplastin Time 27.8 SECS (0-40)
[2017-09-10 22:43] LABS: Alanine Aminotransferase 10 U/L (16-61); Albumin 3.2 G/DL (3.4-5.0); Alkaline Phosphatase 75 U/L (45-117); Aspartate Amino Transferase 19 U/L (0-37); Blood Urea Nitrogen 28 MG/DL (7-18); Calcium 8.2 MG/DL (8.5-10.1); Glucose 128 MG/DL (74-106); Osmolality,Calculated 286.4 MOS/KG (273-304); Potassium 4.3 MMOL/L (3.5-5.1); Sodium 140 MMOL/L (136-145); Total Protein 5.9 G/DL (6.4-8.3); Troponin I Only < 0.015 NG/ML (0.00-0.045)
[2017-09-11] MEDS ORDERED: ALBUTEROL 2.5 MG/3 ML NEB RESP TX PRN (02:28)
[2017-09-11] MEDS ORDERED: ACETAMINOPHEN 325 MG TABLET PO PRN (02:33)
[2017-09-11] MEDS ORDERED: ONDANSETRON 4 MG/2 ML VIAL IV PRN (02:33)
[2017-09-11] MEDS: PIPERACILLIN/TAZOBACTAM 3,375 MG in SODIUM CHLORIDE 0.9% 100 ML IV SCH ×3 (03:44→21:00)
[2017-09-11 04:55] LABS: Basophils % 0.3 % (0.0-0.8); Hematocrit 30.7 VOL% (42.0-52.0); Hemoglobin 9.9 GM/DL (14.0-18.0); Immature Granulocytes % 1.3 %; Immature Granulocytes Absolute 0.08 #; Lymphocytes # 0.3 10*3/uL (1.4-4.0); Lymphocytes % 4.9 % (21.2-54.2); Mean Corpuscular HGB Conc 32.2 GM/DL (32-36); Mean Corpuscular Hemoglobin 30 PG (27-34); Mean Corpuscular Volume 91.4 FL (87-102); Mean Platelet Volume 10.9 FL (9.6-12.0); Monocytes % 0.3 % (1.7-12.7); Neutrophils # 5.7 10*3/uL (1.4-7.4); Neutrophils % 93.2 % (38.7-73.9); Platelet Count 338 T/CUMM (130-400); Red Blood Count 3.36 MC/CUMM (3.8-5.5); Red Cell Distribution Width 18.5 % (9.3-17.3); White Blood Count 6.1 T/CUMM (4-12)
[2017-09-11 05:09] LABS: Calcium 8.5 MG/DL (8.5-10.1); Potassium 4.5 MMOL/L (3.5-5.1)
[2017-09-11 05:39] LABS: Band Neutrophils 2 % (0-10); Lymphocytes 5 % (20-55); Segmented Neutrophils 93 % (50-85); Total Cells Counted 100
[2017-09-11 05:40] LABS: Burr Cells Slight; Platelet Estimate Normal; Poikilocytosis Slight
[2017-09-11] MEDS: methylPREDNISolone SOD SUC 40 MG/1 ML VIAL IV SCH ×3 (06:18→22:52)
[2017-09-11] MEDS: ALBUTEROL/IPRATROPIUM 3 ML NEB RESP TX SCH ×3 (07:18→19:23)
[2017-09-11] MEDS: ENOXAPARIN 40 MG/0.4 ML SYRINGE SUBCUT SCH (08:58)
[2017-09-11] MEDS: PANTOPRAZOLE 40 MG TABLET PO SCH (08:58)
[2017-09-11] MEDS: RIVASTIGMINE 1.5 MG CAPSULE PO SCH (17:28)
[2017-09-11] MEDS: THEOPHYLLINE ER 300 MG TABLET PO SCH (17:28)
[2017-09-11] MEDS: DILTIAZEM 60 MG TABLET PO SCH ×2 (17:28→20:58)
[2017-09-11] MEDS: METOPROLOL TARTRATE 25 MG TABLET PO SCH (20:58)
[2017-09-11] MEDS: CARBIDOPA/LEVODOPA 25-100 MG TABLET PO SCH (20:58)
[2017-09-11] MEDS: GABAPENTIN 100 MG CAPSULE PO SCH (20:58)
[2017-09-11] MEDS: rOPINIRole 0.25 MG TABLET PO SCH (20:59)
[2017-09-11] MEDS: BUDESONIDE/FORMOTEROL 160-4.5 INHALER 6 GM INH SCH (20:59)
[2017-09-12] MEDS: ALBUTEROL/IPRATROPIUM 3 ML NEB RESP TX SCH ×5 (00:10→19:15)
[2017-09-12 04:48] LABS: Basophils % 0.2 % (0.0-0.8); Hematocrit 27.9 VOL% (42.0-52.0); Hemoglobin 9.4 GM/DL (14.0-18.0); Immature Granulocytes % 2.2 %; Immature Granulocytes Absolute 0.38 #; Lymphocytes # 0.6 10*3/uL (1.4-4.0); Lymphocytes % 3.5 % (21.2-54.2); Mean Corpuscular HGB Conc 33.7 GM/DL (32-36); Mean Corpuscular Hemoglobin 30 PG (27-34); Mean Corpuscular Volume 88.6 FL (87-102); Mean Platelet Volume 10.7 FL (9.6-12.0); Monocytes # 0.2 10*3/uL (0.11-0.8); Monocytes % 1.3 % (1.7-12.7); Neutrophils % 92.8 % (38.7-73.9); Platelet Count 318 T/CUMM (130-400); Red Blood Count 3.15 MC/CUMM (3.8-5.5); Red Cell Distribution Width 18.6 % (9.3-17.3); White Blood Count 17.3 T/CUMM (4-12)
[2017-09-12 05:11] LABS: Calcium 8.5 MG/DL (8.5-10.1); Osmolality,Calculated 288.4 MOS/KG (273-304); Potassium 4.5 MMOL/L (3.5-5.1)
[2017-09-12 05:15] LABS: Lymphocytes 4 % (20-55); Microcytosis 1+; Segmented Neutrophils 94 % (50-85); Total Cells Counted 100
[2017-09-12 05:16] LABS: Ovalocytes Slight
[2017-09-12] MEDS: methylPREDNISolone SOD SUC 40 MG/1 ML VIAL IV SCH ×2 (05:42→20:48)
[2017-09-12] MEDS: PIPERACILLIN/TAZOBACTAM 3,375 MG in SODIUM CHLORIDE 0.9% 100 ML IV SCH ×3 (05:45→20:48)
[2017-09-12] MEDS: DILTIAZEM 60 MG TABLET PO SCH ×4 (08:27→20:49)
[2017-09-12] MEDS: THEOPHYLLINE ER 300 MG TABLET PO SCH ×2 (08:27→18:12)
[2017-09-12] MEDS: ENOXAPARIN 40 MG/0.4 ML SYRINGE SUBCUT SCH (08:27)
[2017-09-12] MEDS: PANTOPRAZOLE 40 MG TABLET PO SCH (08:27)
[2017-09-12] MEDS: METOPROLOL TARTRATE 25 MG TABLET PO SCH ×2 (08:27→20:49)
[2017-09-12] MEDS: FOLIC ACID 1 MG TABLET PO SCH (08:28)
[2017-09-12] MEDS: CARBIDOPA/LEVODOPA 25-100 MG TABLET PO SCH ×3 (08:28→20:49)
[2017-09-12] MEDS: GABAPENTIN 100 MG CAPSULE PO SCH ×3 (08:29→20:49)
[2017-09-12] MEDS: RIVASTIGMINE 1.5 MG CAPSULE PO SCH ×2 (08:29→18:12)
[2017-09-12] MEDS: DULoxetine 30 MG CAPSULE PO SCH (08:29)
[2017-09-12] MEDS: TAMSULOSIN 0.4 MG CAPSULE PO SCH (08:29)
[2017-09-12] MEDS: BUDESONIDE/FORMOTEROL 160-4.5 INHALER 6 GM INH SCH ×2 (08:32→20:48)
[2017-09-12] MEDS: rOPINIRole 0.25 MG TABLET PO SCH (20:49)
[2017-09-13] MEDS: ALBUTEROL/IPRATROPIUM 3 ML NEB RESP TX SCH ×4 (00:40→18:15)
[2017-09-13] MEDS: PIPERACILLIN/TAZOBACTAM 3,375 MG in SODIUM CHLORIDE 0.9% 100 ML IV SCH ×3 (05:16→21:06)
[2017-09-13 05:29] LABS: Basophils % 0.1 % (0.0-0.8); Hematocrit 30.5 VOL% (42.0-52.0); Hemoglobin 9.9 GM/DL (14.0-18.0); Immature Granulocytes % 2.8 %; Immature Granulocytes Absolute 0.51 #; Lymphocytes # 0.5 10*3/uL (1.4-4.0); Lymphocytes % 2.7 % (21.2-54.2); Mean Corpuscular HGB Conc 32.5 GM/DL (32-36); Mean Corpuscular Hemoglobin 29 PG (27-34); Mean Corpuscular Volume 90.5 FL (87-102); Mean Platelet Volume 10.8 FL (9.6-12.0); Monocytes # 0.2 10*3/uL (0.11-0.8); Neutrophils # 17.1 10*3/uL (1.4-7.4); Neutrophils % 93.4 % (38.7-73.9); Platelet Count 359 T/CUMM (130-400); Red Blood Count 3.37 MC/CUMM (3.8-5.5); Red Cell Distribution Width 18.8 % (9.3-17.3); White Blood Count 18.3 T/CUMM (4-12)
[2017-09-13 05:48] LABS: Lymphocytes 2 % (20-55); Segmented Neutrophils 96 % (50-85); Total Cells Counted 100
[2017-09-13 05:49] LABS: Giant Platelets Few; Hypochromasia 1+; Microcytosis Slight; Platelet Estimate Adequate
[2017-09-13 06:16] LABS: Calcium 8.8 MG/DL (8.5-10.1); Osmolality,Calculated 293.4 MOS/KG (273-304); Potassium 4.6 MMOL/L (3.5-5.1)
[2017-09-13] MEDS: ENOXAPARIN 40 MG/0.4 ML SYRINGE SUBCUT SCH (09:48)
[2017-09-13] MEDS: methylPREDNISolone SOD SUC 40 MG/1 ML VIAL IV SCH ×2 (09:48→21:06)
[2017-09-13] MEDS: GABAPENTIN 100 MG CAPSULE PO SCH ×3 (09:49→21:07)
[2017-09-13] MEDS: CARBIDOPA/LEVODOPA 25-100 MG TABLET PO SCH ×3 (09:49→21:07)
[2017-09-13] MEDS: RIVASTIGMINE 1.5 MG CAPSULE PO SCH ×2 (09:49→17:15)
[2017-09-13] MEDS: METOPROLOL TARTRATE 25 MG TABLET PO SCH ×2 (09:49→21:07)
[2017-09-13] MEDS: DULoxetine 30 MG CAPSULE PO SCH (09:49)
[2017-09-13] MEDS: DILTIAZEM 60 MG TABLET PO SCH ×4 (09:49→21:07)
[2017-09-13] MEDS: TAMSULOSIN 0.4 MG CAPSULE PO SCH (09:49)
[2017-09-13] MEDS: FOLIC ACID 1 MG TABLET PO SCH (09:49)
[2017-09-13] MEDS: THEOPHYLLINE ER 300 MG TABLET PO SCH ×2 (09:49→17:14)
[2017-09-13] MEDS: BUDESONIDE/FORMOTEROL 160-4.5 INHALER 6 GM INH SCH ×2 (09:58→21:07)
[2017-09-13] MEDS: PANTOPRAZOLE 40 MG TABLET PO SCH (14:07)
[2017-09-13] MEDS: rOPINIRole 0.25 MG TABLET PO SCH (21:07)
[2017-09-14] MEDS: ALBUTEROL/IPRATROPIUM 3 ML NEB RESP TX SCH ×4 (00:33→20:23)
[2017-09-14] MEDS: PIPERACILLIN/TAZOBACTAM 3,375 MG in SODIUM CHLORIDE 0.9% 100 ML IV SCH (04:50)
[2017-09-14] MEDS: TAMSULOSIN 0.4 MG CAPSULE PO SCH (09:03)
[2017-09-14] MEDS: RIVASTIGMINE 1.5 MG CAPSULE PO SCH ×2 (09:03→16:47)
[2017-09-14] MEDS: CARBIDOPA/LEVODOPA 25-100 MG TABLET PO SCH ×3 (09:03→20:35)
[2017-09-14] MEDS: DULoxetine 30 MG CAPSULE PO SCH (09:03)
[2017-09-14] MEDS: PANTOPRAZOLE 40 MG TABLET PO SCH (09:03)
[2017-09-14] MEDS: DILTIAZEM 60 MG TABLET PO SCH ×4 (09:03→20:35)
[2017-09-14] MEDS: predniSONE 20 MG TABLET PO SCH (09:03)
[2017-09-14] MEDS: METOPROLOL TARTRATE 25 MG TABLET PO SCH ×2 (09:03→20:35)
[2017-09-14] MEDS: GABAPENTIN 100 MG CAPSULE PO SCH ×3 (09:03→20:36)
[2017-09-14] MEDS: ENOXAPARIN 40 MG/0.4 ML SYRINGE SUBCUT SCH (09:04)
[2017-09-14] MEDS: BUDESONIDE/FORMOTEROL 160-4.5 INHALER 6 GM INH SCH ×2 (09:04→20:36)
[2017-09-14] MEDS: FOLIC ACID 1 MG TABLET PO SCH (09:04)
[2017-09-14] MEDS: THEOPHYLLINE ER 300 MG TABLET PO SCH ×2 (09:04→16:47)
[2017-09-14 09:27] LABS: Basophils % 0.1 % (0.0-0.8); Hematocrit 32.4 VOL% (42.0-52.0); Hemoglobin 10.8 GM/DL (14.0-18.0); Immature Granulocytes % 2.1 %; Immature Granulocytes Absolute 0.37 #; Lymphocytes # 0.6 10*3/uL (1.4-4.0); Lymphocytes % 3.6 % (21.2-54.2); Mean Corpuscular HGB Conc 33.3 GM/DL (32-36); Mean Corpuscular Hemoglobin 30 PG (27-34); Mean Corpuscular Volume 89.5 FL (87-102); Mean Platelet Volume 10.6 FL (9.6-12.0); Monocytes # 0.2 10*3/uL (0.11-0.8); Monocytes % 1.2 % (1.7-12.7); Neutrophils # 16.4 10*3/uL (1.4-7.4); Platelet Count 361 T/CUMM (130-400); Red Blood Count 3.62 MC/CUMM (3.8-5.5); Red Cell Distribution Width 18.8 % (9.3-17.3); White Blood Count 17.7 T/CUMM (4-12)
[2017-09-14 09:50] LABS: Lymphocytes 8 % (20-55); Microcytosis 1+; Segmented Neutrophils 91 % (50-85); Total Cells Counted 100
[2017-09-14 09:51] LABS: Calcium 8.7 MG/DL (8.5-10.1); Osmolality,Calculated 296.1 MOS/KG (273-304); Ovalocytes Slight; Platelet Estimate Normal; Potassium 4.3 MMOL/L (3.5-5.1)
[2017-09-14] MEDS: rOPINIRole 0.25 MG TABLET PO SCH (20:35)
[2017-09-15] MEDS: ALBUTEROL/IPRATROPIUM 3 ML NEB RESP TX SCH ×3 (01:53→13:38)
[2017-09-15] MEDS: RIVASTIGMINE 1.5 MG CAPSULE PO SCH (09:00)
[2017-09-15] MEDS: DILTIAZEM 60 MG TABLET PO SCH ×2 (09:00→13:04)
[2017-09-15] MEDS: TAMSULOSIN 0.4 MG CAPSULE PO SCH (09:01)
[2017-09-15] MEDS: ENOXAPARIN 40 MG/0.4 ML SYRINGE SUBCUT SCH (09:01)
[2017-09-15] MEDS: GABAPENTIN 100 MG CAPSULE PO SCH (09:01)
[2017-09-15] MEDS: CARBIDOPA/LEVODOPA 25-100 MG TABLET PO SCH (09:01)
[2017-09-15] MEDS: THEOPHYLLINE ER 300 MG TABLET PO SCH (09:01)
[2017-09-15] MEDS: FOLIC ACID 1 MG TABLET PO SCH (09:01)
[2017-09-15] MEDS: predniSONE 20 MG TABLET PO SCH (09:01)
[2017-09-15] MEDS: PANTOPRAZOLE 40 MG TABLET PO SCH (09:01)
[2017-09-15] MEDS: DULoxetine 30 MG CAPSULE PO SCH (09:01)
[2017-09-15] MEDS: METOPROLOL TARTRATE 25 MG TABLET PO SCH (09:01)
[2017-09-15] MEDS: BUDESONIDE/FORMOTEROL 160-4.5 INHALER 6 GM INH SCH (09:06)
[2017-09-15 11:34] VITALS: BP 159/78
== END 2017-09-15 14:02 | disposition swing bed (61) | DRG 190 ==
LOC: EDBD → EDUNIT# → N.ED 21:15 → SUATTDRO 09-11 00:25 → N.EDINP 09-11 00:25 → N.2E 09-11 01:33
PROVIDERS: ADMIT Internal Medicine; ATTEND Internal Medicine